=== PATIENT | female | born 1965 | race Caucasian/White ===

== ENCOUNTER 2018-05-29 09:20 | Inpatient (IN) ==
[2018-05-26 16:05] LABS: Appearance,Urine CLEAR; Bilirubin,Urine NEG (NEG); Color,Urine STRAW; Glucose,Urine (UA) NEGATIVE (NEG); Leukocyte Esterase,Urine NEG /uL (NEG); Protein,Urine NEG (NEG); Specific Gravity,Urine 1.005 (1.000-1.035); Urine Blood NEG mg/dL (<0.03); Urobilinogen,Urine NEG (NEG)
[2018-05-26 17:52] LABS: Basophils # (Auto) 0 K/mcL (0.0-0.3); Basophils % (Auto) 0.6 % (0.0-2.0); Eosinophils # (Auto) 0 K/mcL (0.0-0.7); Eosinophils % (Auto) 0.8 % (0.0-7.0); Lymphocytes # (Auto) 0.8 K/mcL (1.5-4.8); Lymphocytes % (Auto) 17.7 % (15.5-49.0); Mean Cell Volume 82.1 fL (80.0-100.0); Mean Corpuscular HGB Conc 33.8 g/dL (31.0-36.0); Mean Corpuscular Hemoglobin 27.7 pg (26.0-34.0); Monocytes # (Auto) 0.3 K/mcL (0.1-0.9); Monocytes % (Auto) 5.9 % (1.0-12.0); Platelet Count 240 K/mcL (140-440); RBC 4.18 M/mcL (4.00-5.20); Red Cell Distribution Width 14.5 % (11.5-14.5)
[2018-05-26 18:01] LABS: Blood Urea Nitrogen 11 mg/dl (6-20)
[~2018-05-29 09:20] MED LIST: 0.9 % SODIUM CHLORIDE 9 ML, KETOROLAC 30 MG, ROPIVACAINE HCL/PF 49.5 ML, EPINEPHrine 0.... IJ SCH; ACETAMINOPHEN 500 MG TABLET PO SCH; PREGABALIN 75 MG CAPSULE PO SCH; ceFAZolin 1 GM VIAL IV SCH; oxyCODONE 10 MG TAB.ER.12H PO SCH
--- NOTE | 2018-05-29 13:50 | Brief Operative Note ---
Date of procedure: 05/29/18 Pre-op diagnosis: left knee djd servere Post-op diagnosis: same Procedure: left knee tka with robot Grafts/Implants: Yes Anesthesia: GETA Complications: none Surgeon: Nestor David [facility] Assistant: Henry Holloway Estimated blood loss (cc): 100 Specimens Removed/Pathology: none sent Condition: stable Disposition: PACU
[2018-05-29] MEDS ORDERED: FLEETS ADULT ENEMA PR PRN (13:51)
[2018-05-29] MEDS ORDERED: POLYETHYLENE GLYCOL 3350 17 GM PACKET PO PRN (13:51)
[2018-05-29] MEDS ORDERED: TRANEXAMIC ACID 1,000 MG/10 ML VIAL IV ONE ×2 (13:51→14:00)
[2018-05-29] MEDS ORDERED: HYDROmorphone 2 MG/ML VIAL IV PRN (13:51)
[2018-05-29] MEDS ORDERED: BISACODYL 10 MG SUPP.RECT PR PRN (13:51)
[2018-05-29] MEDS ORDERED: MAGNESIUM HYDROXIDE 30 ML ORAL.SUSP PO PRN (13:51)
[2018-05-29] MEDS ORDERED: ONDANSETRON 4 MG/2 ML VIAL IV PRN ×2 (13:51→15:27)
[2018-05-29] MEDS ORDERED: BENZOCAINE/MENTHOL 1 LOZENGE PO PRN ×2 (13:51→15:27)
[2018-05-29] MEDS ORDERED: ACETAMINOPHEN 325 MG TABLET PO PRN (13:51)
[2018-05-29] MEDS ORDERED: LORazepam 0.5 MG TABLET PO PRN (13:53)
[2018-05-29] MEDS ORDERED: PROPOFOL 200 MG/20 ML VIAL IV ONE (14:00)
[2018-05-29] MEDS ORDERED: KETAMINE 100 MG/ML ML IV ONE (14:00)
[2018-05-29] MEDS ORDERED: DEXAMETHASONE 10 MG/ML VIAL IV ONE (14:00)
[2018-05-29] MEDS ORDERED: ROPIVACAINE HCL/PF 20 ML VIAL IJ ONE (14:00)
[2018-05-29] MEDS ORDERED: MIDAZOLAM 2 MG/2 ML VIAL IV ONE (14:00)
[2018-05-29] MEDS ORDERED: ONDANSETRON 4 MG/2 ML VIAL IV ONE (14:00)
[2018-05-29] MEDS ORDERED: LIDOCAINE HCL/PF 100 MG/5 ML SYRINGE IV ONE (14:00)
[2018-05-29] MEDS ORDERED: GLYCOPYRROLATE 0.2 MG/ML VIAL IV ONE (14:00)
[2018-05-29] MEDS ORDERED: GENTAMICIN SULFATE 800 MG/20 ML VIAL IR ONE (14:56)
[2018-05-29] MEDS ORDERED: IPRATROPIUM/ALBUTEROL 3 ML AMPUL.NEB NEB PRN (15:27)
[2018-05-29] MEDS ORDERED: KETOROLAC 30 MG/ML VIAL IV PRN (15:27)
[2018-05-29] MEDS ORDERED: METHOCARBAMOL 1,000 MG/10 ML VIAL IV PRN (15:27)
[2018-05-29] MEDS ORDERED: fentaNYL 100 MCG/2 ML VIAL IV PRN (15:27)
[2018-05-29] MEDS ORDERED: LACTATED RINGERS 1,000 ML IV SCH (15:30)
--- NOTE | 2018-05-29 16:13 | Discharge Summary ---
Ortho Discharge - TKA - Patient Instructions Diet: Regular Diet Activity: activity as tolerated, weight bearing as tolerated Total Knee Protocol: For Total Knee: Start ROM CHASE with stationary bike or rocking chair. Work on gaining full extension of knee. Posterior dislocation precautions provided. Hip abductor strengthening and gait training instructions provided. Apply Cryocuff as instructed. Dressing Care: May shower in 3 days, Aquacel Ag - leave on for 5 days - Follow Up Plan Follow Up Appointments: Henry Holloway PA-C [Physician Blanket Winder Operator] - 06/11/18 2:20 pm Disposition: Home, Self-Care Prognosis: Good Rehab Potential: Good I certify that the patient requires SNF services: No Overall status at discharge: patient is progressing back to baseline - Orders For Discharge Prescriptions: Aspirin [Ecotrin] 325 mg PO BID #60 tab.ec Docusate Sodium [Colace] 100 mg PO BID #60 cap HYDROcodone/APAP 10/325MG [[place] 10-325Mg] 1 - 2 tab PO Q4HP PRN #75 tab PRN Reason: Pain Level 3-6
[2018-05-29] MEDS: MEPERIDINE 25 MG/ML SYRINGE IV PRN ×2 (16:26→17:06)
--- NOTE | 2018-05-29 16:35 | Operative Note ---
DATE OF OPERATION: 05/29/2018 PREOPERATIVE DIAGNOSES: Left knee severe degenerative arthritis as well as severe obesity. POSTOPERATIVE DIAGNOSES: Left knee severe degenerative arthritis as well as severe obesity. PROCEDURE: Left total knee arthroplasty with cemented components and a long stem tibial baseplate, a 36 mm patellar button, an 11 mm poly insert, size 4 tibial baseplate, and a size 4 femur. SURGEON: Nestor David M.D. RN PROCEDURE: Henry Holloway PA-C. ANESTHESIA: General anesthesia. COMPLICATIONS: None. FINDINGS: Severe arthritis of the left knee in all three compartments with lateral instability. DESCRIPTION OF PROCEDURE: We started the case after being given a timeout and confirming the left knee as the operative site. The left leg was sterilely prepped and draped in the usual sterile fashion. A tourniquet was placed proximally. Ioban was placed over the skin. After confirming the preoperative antibiotics were given and tranexamic acid had been given, we then sterilely prepped and draped the leg. We made a midline incision, a midvastus approach performed. We evaluated the knee and midvastus approach to the knee, subluxed the patella laterally showing severe arthritis throughout all three compartments. Large spurs and instability of the lateral compartment was quite evident. At this point, we then proceeded with the robotic total knee. Two pins above and below the knee were placed and two intra-articular pins. The femur was registered with intra-articular points, thirty points on the femur, thirty points on the tibia, and then we registered the range of motion of the hip and balanced the knee in 90 degrees of flexion and 15 degrees of flexion. Once we balanced all the ligaments, we then brought the robot in and the cuts were made according to the preoperative plan. We then trialed the components, setting the rotation using the robot as well. We then felt that the 9 mm was too thin. It gave a +4 extension, and she started with a deformity of 4 degrees of varus and 4 degrees of flexion contracture. With this, we then placed an 11 mm poly which gave us 0 degrees extension and corrected back to 2 degrees of varus, which we had preoperatively planned. Once this was done, we then prepared the patella. Its total thickness was 24 mm in total thickness. This was cut to a 14 mm and then we placed a 36 mm patellar button which was 10 mm thick, restoring the thickness. We irrigated thoroughly and this seemed to track perfectly. We irrigated and then cemented into place the tibial base plate, that had been set the rotation with the robot, with a longer stem given her large leg and impingement on the fat caused quite a bit of tension in flexion, to limit any complication with tibial base loosening. At this point, we did place a 50 mm additional stem to give more stability which was added to the stem and cemented into place. Once done, we then irrigated thoroughly and placed the femur. CarboJet was used to prepare the bony surface when we were cementing, and this gave a much better impregnation of cement. The femur fit nicely just as preoperatively planned and excess cement was removed. We then resurfaced the patella as planned with a 36 mm patella which was cemented into place. The 11 mm poly had been placed between the ___. This was highly crosslinked with a deep dish for extra stability. We irrigated thoroughly and then kept the knee in extension until all the cement was dry. We reinspected the knee once more and watched the patella track which was perfect. We then closed the midvastus approach with two #1 Stratafix. We then closed the skin with #1 Stratafix and 2-0 Vicryl and isela. The pins had all been removed, intraarticular pins and extraarticular pins. All were accounted for. These other additional portals that were required for the robot were closed using the stapler as well. The patient tolerated this well without complication. Tourniquet time was approximately 65 minutes. RBH:sarai Job ID: [id number] Doc ID: [id number] Nestor David MD
--- NOTE | 2018-05-29 16:42 | XRay Report ---
HISTORY: Postop knee replacement FINDINGS: There is a well-positioned left total knee prosthesis. No fracture is present and there are no abnormal soft tissue calcifications. IMPRESSION: Well-positioned left knee prosthesis Interpreted and Authenticated by: Tylor Crespo 05/29/18
[2018-05-29] MEDS: KETOROLAC 15 MG/ML VIAL IV SCH (18:28)
[2018-05-29] MEDS: 0.9 % SODIUM CHLORIDE 10 ML SYRINGE IV SCH ×2 (18:45→20:45)
[2018-05-29] MEDS: 0.45 % SODIUM CHLORIDE 1,000 ML IV SCH (18:56)
[2018-05-29] MEDS: HYDROcodone/APAP 10/325MG TABLET PO PRN (19:51)
[2018-05-29] MEDS: SENNOSIDES 1 TABLET PO SCH (20:44)
[2018-05-29] MEDS: TEMAZEPAM 15 MG CAPSULE PO PRN (20:44)
[2018-05-29] MEDS: ASPIRIN 325 MG ENTERIC COATED TABLET PO SCH (20:44)
[2018-05-29] MEDS: DOCUSATE SODIUM 100 MG CAPSULE PO SCH (20:44)
[2018-05-29] MEDS: ceFAZolin 1 GM VIAL IV SCH (21:08)
[2018-05-30] MEDS: KETOROLAC 15 MG/ML VIAL IV SCH ×5 (00:04→23:36)
[2018-05-30] MEDS: 0.45 % SODIUM CHLORIDE 1,000 ML IV SCH ×3 (00:04→21:57)
[2018-05-30] MEDS: HYDROcodone/APAP 10/325MG TABLET PO PRN ×8 (00:04→21:50)
[2018-05-30] MEDS: ceFAZolin 1 GM VIAL IV SCH (04:24)
[2018-05-30] MEDS: 0.9 % SODIUM CHLORIDE 10 ML SYRINGE IV SCH ×3 (04:24→20:49)
[2018-05-30] MEDS: LEVOTHYROXINE 25 MCG TABLET PO SCH (07:12)
[2018-05-30] MEDS: ASPIRIN 325 MG ENTERIC COATED TABLET PO SCH ×2 (09:40→20:48)
[2018-05-30] MEDS: DOCUSATE SODIUM 100 MG CAPSULE PO SCH ×2 (09:41→20:49)
--- NOTE | 2018-05-30 09:59 | Orthopedic Progress Note ---
Subjective Patient information: Note initiated : 05/30/18 at 9:54 am Service Date, if different from initiated Date: [] Patient: Maty Baker 53 y/o F admitted on 05/29/18 for Left Robotic Total Knee Arthroplasty. Chief Complaint: [still with some pain but ambulated 100 feet] Objective Vital signs: Vital Signs Temp Pulse Resp BP Pulse Ox 05/30/18 07:39 98.0 F 18 129/67 97 05/30/18 04:00 97.5 F 70 18 97/60 96 05/30/18 00:00 97.8 F 80 16 106/71 94 05/29/18 20:21 97.7 F 73 18 99/61 95 05/29/18 19:07 100 05/29/18 18:51 80 105/5 99 05/29/18 18:21 81 107/67 100 05/29/18 18:07 76 111/49 99 05/29/18 17:51 83 111/73 98 05/29/18 17:36 98.1 F 102/63 98 05/29/18 17:21 119/68 100 05/29/18 17:10 98.3 F 78 18 113/64 97 05/29/18 16:55 98.6 F 81 15 124/60 96 05/29/18 16:40 98.7 F 88 16 118/68 94 05/29/18 16:25 98.9 F 88 12 113/91 96 05/29/18 16:20 97 H 13 113/92 97 05/29/18 16:15 105 H 13 122/66 98 05/29/18 16:10 98.1 F 109 H 20 130/67 100 Intake and Output 05/29/18 05/30/18 05/30/18 21:59 05:59 13:59 Intake Total 2240 / 2240 1400 / 1400 Output Total 151 / 151 650 / 650 Balance 2089 / 2089 750 / 750 Intake: IV 1999 / 1999 Lactated Ringers 1,000 ml @ 20 2000 / 1999 mls/hr IV .Q24H [facility] Rx#: [id number] Oral 240 / 240 400 / 400 IV - Manual Only 1000 / 1000 Output: Void Amount 650 / 650 # of times incontinent of urine / Estimated Blood Loss 150 / 150 Other: Meal Dinner Percent of Meal Consumed 100% Feeding Ability Independent Urine Appearance Clear Urine Color Dark Yellow Urine Odor Normal Weight 282 lb 8 oz Intake & Output: Intake & Output 05/29/18 05/30/18 05/30/18 21:59 05:59 13:59 Intake Total 2240 / 2240 1400 / 1400 Output Total 151 / 151 650 / 650 Balance 2088 / 2088 750 / 750 Weight 282 lb 8 oz Intake: IV 1999 / 1999 Lactated Ringers 1,000 ml @ 20 2000 / 2000 mls/hr IV .Q24H [facility] Rx#: [id number] Oral 240 / 240 400 / 400 IV - Manual Only 1000 / 1000 Output: Void Amount 650 / 650 # of times incontinent of urine Estimated Blood Loss 150 / 150 Other: Meal Dinner Percent of Meal Consumed 100% Feeding Ability Independent Urine Appearance Clear Urine Color Dark Yellow Urine Odor Normal Incision: Yes healing Incision clean and dry: Yes Dressing: Yes clean Weight bearing status: full Neurological exam IM: Yes oriented X3, Yes neurovascular intact Extremities exam IM: Yes Foot pink and warm (doing well but will stay one more day as she is weak), Yes neurovascular intact - Labs CBC & BMP: 05/30/18 04:41 05/26/18 14:22 Labs: Orthopedic Labs 05/26/18 14:22 PT 14.1 INR 1.1 APTT 32 05/30/18 05/26/18 04:41 14:22 Hgb 11.6 L Hct 31.3 L 34.4 L
[2018-05-30] MEDS: CEPHALEXIN 250 MG CAPSULE PO SCH (10:30)
[2018-05-30] MEDS: TEMAZEPAM 15 MG CAPSULE PO PRN (20:48)
[2018-05-30] MEDS: SENNOSIDES 1 TABLET PO SCH (20:48)
[2018-05-31] MEDS: HYDROcodone/APAP 10/325MG TABLET PO PRN ×3 (01:54→09:33)
[2018-05-31] MEDS: 0.45 % SODIUM CHLORIDE 1,000 ML IV SCH (05:39)
[2018-05-31] MEDS: KETOROLAC 15 MG/ML VIAL IV SCH (05:43)
[2018-05-31] MEDS: 0.9 % SODIUM CHLORIDE 10 ML SYRINGE IV SCH (05:46)
[2018-05-31] MEDS: LEVOTHYROXINE 25 MCG TABLET PO SCH (07:05)
[2018-05-31] MEDS: ASPIRIN 325 MG ENTERIC COATED TABLET PO SCH (09:33)
[2018-05-31] MEDS: DOCUSATE SODIUM 100 MG CAPSULE PO SCH (09:33)
[2018-05-31] MEDS: CEPHALEXIN 250 MG CAPSULE PO SCH (09:34)
== END 2018-05-31 10:17 | disposition home or self-care (01) | DRG 470 ==
LOC: MEDSUR 09:20
PROVIDERS: ADMIT Orthopaedic Surgery; ATTEND Orthopaedic Surgery
CPT/HCPCS: 62322; 97161; C1713; C1776; J0690; J1100; J1170; J1580; J1885; J2001; J2175; J2250; J2405; J2795; J7120